=== PATIENT | female | born 1950 | race Caucasian/White ===

== ENCOUNTER 2020-07-24 09:03 | Day surgery (SDC) | payer OTHER ==
[~2020-07-24 09:03] MED LIST: CALCAVITDA PO; ESTR.05PBW TOP; Homocysteine F1 EACH PO; PROGEST; STRONTIUM CITRATE; Super B Comple150 MG PO; T3/T4; TESTOST; VITAMIN D35000 UNI1 PO; [UNRECOGNIZED DRUG - OTHER] PO
== END 2020-07-24 22:54 | disposition home or self-care (01) ==
LOC: MOI US 09:03 → MOI MAM 09:30 → MOI US 22:54
DX: R92.8 Other abnormal and inconclusive findings on diagnostic imaging of breast (principal); C50.911 Malignant neoplasm of unspecified site of right female breast; Z17.0 Estrogen receptor positive status [ER+]
CPT/HCPCS: 19083; 77065; 88305; 88360; A4648; G0279

== ENCOUNTER → 2020-12-20 | Outpatient (CLI) | payer OTHER | END | disposition home or self-care (01) | LOC: LAB SHORT 12:19 | DX: D22.72 Melanocytic nevi of left lower limb, including hip (principal) | CPT/HCPCS: 88305 ==

== ENCOUNTER 2021-02-05 10:43 | Day surgery (SDC) | payer OTHER ==
[~2021-02-05] VITALS: Ht 157.5 cm; Wt 54.5 kg
[~2021-02-05 10:43] MED LIST changes: +ALPR.25 PO; +ASPI325 PO; +ATOR20 PO; +Calcium Carbon500 MG PO; +ESTRADIOL (TWI1 EAC3 TD; +MOBIC15 MG PO; +OMEPRAZOLE MAGN20 MG PO; +VENL37.5ER; +ZOLP5 PO
[2021-02-05] MEDS ORDERED: ST. JOSEPH ASPI81 M1 (10:53)
== END 2021-02-05 12:13 | disposition home or self-care (01) ==
LOC: ORSCSDS 10:43
PROVIDERS: Student in an Organized Health Care Education/Training Program
PROC: 0DB98ZX Excision of Duodenum, Via Natural or Artificial Opening Endoscopic, Diagnostic (ICD-10-PCS; principal; 2021-02-05 12:00)
PROC: 0DB58ZX Excision of Esophagus, Via Natural or Artificial Opening Endoscopic, Diagnostic (ICD-10-PCS; principal; 2021-02-05 12:00)
PROC: 0DB78ZX Excision of Stomach, Pylorus, Via Natural or Artificial Opening Endoscopic, Diagnostic (ICD-10-PCS; principal; 2021-02-05 12:00)
DX: R10.13 Epigastric pain (principal); K29.80 Duodenitis without bleeding; K20.90 Esophagitis, unspecified without bleeding; R23.4 Changes in skin texture; E03.9 Hypothyroidism, unspecified; Z79.899 Other long term (current) drug therapy; Z79.82 Long term (current) use of aspirin
CPT/HCPCS: 88305; 88312; 88342; J2704; J7120

== ENCOUNTER 2021-03-25 19:46 | Emergency (ER) | payer OTHER ==
[~2021-03-25] VITALS: Ht 157.5 cm; Wt 54.4 kg
[~2021-03-25 19:46] MED LIST changes: +ST. JOSEPH ASPI81 M1
[2021-03-25 21:15] LABS: BASOPHILS ABSOLUTE AUTO 0.06 K/mm3 (0.00-0.23); BASOPHILS PERCENT AUTO 1 % (0-2); EOSINOPHILS ABSOLUTE AUTO 0.25 K/mm3 (0.00-0.68); EOSINOPHILS PERCENT AUTO 3 % (0-6); Hematocrit 31.8 % (33.0-51.0); Hemoglobin 10.9 g/dL (11.5-16.0); IMMATURE GRAN ABSOLUTE AUTO 0.02 K/mm3 (0.00-0.10); IMMATURE GRAN PERCENT AUTO 0 % (0-1); LYMPHOCYTES ABSOLUTE AUTO 1.86 K/mm3 (0.84-5.20); LYMPHOCYTES PERCENT AUTO 21 % (21-46); MONOCYTES ABSOLUTE AUTO 0.86 K/mm3 (0.16-1.47); MONOCYTES PERCENT AUTO 10 % (4-13); Mean Corpuscular HGB 33.3 pg (26.0-34.0); Mean Corpuscular HGB Conc 34.3 g/dL (31.5-36.5); Mean Corpuscular Volume 97 fL (80-100); Mean Platelet Volume 8.6 fL (9.1-12.4); NEUTROPHILS ABSOLUTE AUTO 5.78 K/mm3 (1.96-9.15); NEUTROPHILS PERCENT AUTO 66 % (41-73); Platelet Count 312 K/mm3 (150-400); RDW Coefficient Variation 11.9 % (11.7-14.2); RDW Standard Deviation 42.4 fL (35.1-46.3); Red Blood Cell Count 3.27 M/mm3 (3.80-5.20); White Blood Cell Count 8.83 K/mm3 (4.00-11.30)
[2021-03-25 21:36] LABS: Alanine Aminotransfer (ALT/SGP 25 U/L (12-78); Albumin, Blood 3.1 g/dL (3.4-5.0); Albumin/Globulin Ratio 0.9 (0.8-1.8); Alk Phos 82 U/L (50-136); Anion Gap 7 mmol/L (6-16); Aspartate Aminotrans (AST/SGOT 21 U/L (12-37); Bilirubin, Total 0.1 mg/dL (0.1-1.0); Blood Urea Nitrogen 25 mg/dL (8-24); Bun/Creatinine Ratio 32.4 (12.0-20.0); CO2, Blood 25 mmol/L (21-32); Calcium, Blood 8.5 mg/dL (8.5-10.1); Chloride, Blood 112 mmol/L (98-108); Creatinine, Blood 0.77 mg/dL (0.40-1.00); Globulin, Blood 3.6 g/dL (2.2-4.0); Glomerular Filtration Rate >60 (60-); Glucose, Blood 114 mg/dL (70-99); Magnesium, Blood 2.2 mg/dL (1.6-2.4); Potassium, Blood 3.7 mmol/L (3.5-5.5); Sodium, Blood 144 mmol/L (136-145); Total Protein, Blood 6.7 g/dL (6.4-8.2); Troponin I <0.015 ng/mL (0.000-0.040)
== END 2021-03-26 00:18 | disposition home or self-care (01) ==
LOC: ER 19:46
PROVIDERS: Emergency Medicine
DX: H53.8 Other visual disturbances (principal); I77.3 Arterial fibromuscular dysplasia; Z20.822 Contact with and (suspected) exposure to COVID-19; E78.5 Hyperlipidemia, unspecified; Z88.5 Allergy status to narcotic agent; Z79.899 Other long term (current) drug therapy; Z79.82 Long term (current) use of aspirin
CPT/HCPCS: 0241U; 70496; 70498; 80053; 83735; 84484; 85025; 93005; 93010; 99284-25; Q9967

== ENCOUNTER 2021-05-25 18:56 | Emergency (ER) | payer OTHER ==
[~2021-05-25] VITALS: Ht 157.5 cm; Wt 55.8 kg
[2021-05-25] MEDS ORDERED: ANASTROZOLE1 M7 PO (20:23)
== END 2021-05-25 21:40 | disposition home or self-care (01) ==
LOC: ER 18:56
DX: S52.502A Unspecified fracture of the lower end of left radius, initial encounter for closed fracture (principal); E78.5 Hyperlipidemia, unspecified; Z88.5 Allergy status to narcotic agent; Z79.82 Long term (current) use of aspirin; Z79.899 Other long term (current) drug therapy; W01.0XXA Fall on same level from slipping, tripping and stumbling without subsequent striking against object, initial encounter
CPT/HCPCS: 25605; 73100; 73110; 99283-25; A9270

== ENCOUNTER 2022-05-29 07:26 | Day surgery (SDC) | payer OTHER ==
[~2022-05-29] VITALS: Ht 157.5 cm; Wt 61.9 kg
[~2022-05-29 07:26] MED LIST changes: +ANASTROZOLE1 M7 PO
[2022-05-29] MEDS ORDERED: LETROZOLE2.5 M2 PO (08:12)
--- NOTE | 2022-05-29 08:49 | NUR ---
05/29/22 0849 Chica Salas NO MONITORING PER DR. TODD, NO IV OR MEDICATIONS GIVEN.
== END 2022-05-29 08:50 | disposition home or self-care (01) ==
LOC: ORSCSDS 07:26
PROVIDERS: Anesthesiology
PROC: 3E0R3BZ Introduction of Anesthetic Agent into Spinal Canal, Percutaneous Approach (ICD-10-PCS; principal; 2022-05-29 08:30)
PROC: 3E0R33Z Introduction of Anti-inflammatory into Spinal Canal, Percutaneous Approach (ICD-10-PCS; principal; 2022-05-29 08:30)
DX: M54.16 Radiculopathy, lumbar region (principal); E03.9 Hypothyroidism, unspecified; Z79.82 Long term (current) use of aspirin; Z79.899 Other long term (current) drug therapy
CPT/HCPCS: J1040

== ENCOUNTER → 2023-11-14 | Outpatient (CLI) | payer OTHER ==
[~2023-11-14] MED LIST changes: +LETROZOLE2.5 M2 PO
== END | disposition home or self-care (01) ==
LOC: LAB 08:36 → LAB SHORT 08:36
DX: N39.0 Urinary tract infection, site not specified (principal)
CPT/HCPCS: 87077; 87086; 87186

== ENCOUNTER 2023-12-16 22:08 | Emergency (ER) | payer OTHER ==
[~2023-12-16] VITALS: Ht 157.5 cm; Wt 53.1 kg
[2023-12-17] MEDS ORDERED: FentaNYL Citrate 50 MCG/ML 2 ML Injection IV PRN (01:10)
[2023-12-17] MEDS ORDERED: Ondansetron HCl 2 MG / ML 2ML Vial ONE (01:47)
[2023-12-17] MEDS ORDERED: Ondansetron HCl 2 MG / ML 2ML Vial IV ONE (01:50)
[2023-12-17] MEDS ORDERED: Ketorolac Tromethamine 30mg Vial IV ONE (02:40)
[2023-12-17 03:00] VITALS: BP 105/66
[2023-12-17] MEDS ORDERED: HYDR1TAB94 PO (03:05)
== END 2023-12-17 03:25 | disposition home or self-care (01) ==
LOC: ER 22:08
DX: S52.501A Unspecified fracture of the lower end of right radius, initial encounter for closed fracture (principal); S52.611A Displaced fracture of right ulna styloid process, initial encounter for closed fracture; E78.5 Hyperlipidemia, unspecified; W10.9XXA Fall (on) (from) unspecified stairs and steps, initial encounter; Z79.82 Long term (current) use of aspirin; Z79.899 Other long term (current) drug therapy; Z88.5 Allergy status to narcotic agent
CPT/HCPCS: 25605; 73100; 73110; 96374-59; 96375-59; 96376-59; 99283-25; J1885; J2405; J3010

== ENCOUNTER 2023-12-23 12:26 | Day surgery (SDC) | payer OTHER ==
[2023-12-23] VITALS (7 sets, daily range): BP systolic 125–161; BP diastolic 70–85
[~2023-12-23] VITALS: Ht 157.5 cm; Wt 53.3 kg
[~2023-12-23 12:26] MED LIST changes: +HYDR1TAB94 PO
[2023-12-23] MEDS ORDERED: LEVOTHYROXINE25 MC9 PO (13:29)
[2023-12-23] MEDS ORDERED: Lactated Ringer's 1,000 ML IV SCH (13:35)
[2023-12-23] MEDS ORDERED: CeFAZolin Sodium 2,000 MG in NS 100 ML IV SCH (13:35)
[2023-12-23] MEDS ORDERED: Midazolam HCl 1MG / ML 2ML Vial ONE (15:20)
[2023-12-23] MEDS ORDERED: FentaNYL Citrate 50 MCG/ML 2 ML Injection ONE (15:20)
[2023-12-23] MEDS ORDERED: propofoL 50 ML IV ONE (15:22)
--- NOTE | 2023-12-23 15:45 | NUR ---
1515: Dr. Lazaro at bedside to perform axillary brachial plexus nerve block. 1528: Timeout complete by RN. 1532: Premeds given by Dr. Lazaro at bedside. See anesthesia records. Pt on continuous monitors for HR and pulse ox, pt placed on 2L supplemental O2 via NC. 1533: Block time start. 1541: Block time end. VSS throughout procedure. Pt tolerated procedure well.
[2023-12-23] MEDS ORDERED: propofoL 20 ML IV ONE (15:53)
[2023-12-23] MEDS ORDERED: Phenylephrine HCl 100 MCG/ML-NS 10MLSYR (1MG/10ML) ONE (16:09)
--- NOTE | 2023-12-23 16:22 | NUR ---
PT BELONGINGS PLACED UNDERNEATH GURNEY FOR SAFEKEEPING. PT GLASSES TAKEN TO PACU FOR SAFEKEEPING.
[2023-12-23] MEDS ORDERED: ePHEDrine Sulfate 50 MG/ML 1ML Injection ONE (16:26)
[2023-12-23] MEDS ORDERED: Glycopyrrolate 0.2 MG/ML 5ML VIAL ONE (16:26)
--- NOTE | 2023-12-23 17:55 | NUR ---
Patient up to Ambulate independently. Gait steady. Patient States Post-Procedure ride home has been arranged. Discharged via wheelchair to private car for ride home. OUT VIA WC, TOLERATING PO FLUIDS/NUTRITION, SCRIPTS SENT TO PHARMACY AND SPOUSE HAS PICKED UP PER PT. CHAYA. DC INSTRUCTIONS AND VERBALIZES UNDERSTANDING
== END 2023-12-23 23:00 | disposition home or self-care (01) ==
LOC: ORSCMMR 12:26 → ORD 14:15 → ORSCMMR 14:15
PROVIDERS: Orthopaedic Surgery
PROC: 0PH Upper Bones, Insertion (ICD-10-PCS; principal; 2023-12-23 15:00)
DX: S52.531A Colles' fracture of right radius, initial encounter for closed fracture (principal); W10.9XXA Fall (on) (from) unspecified stairs and steps, initial encounter; E03.9 Hypothyroidism, unspecified; F41.9 Anxiety disorder, unspecified; Z86.73 Personal history of transient ischemic attack (TIA), and cerebral infarction without residual deficits; Z79.899 Other long term (current) drug therapy
CPT/HCPCS: C1713; J0690; J2250; J2371; J2704; J3010; J7120

== ENCOUNTER 2024-04-09 11:54 | Day surgery (SDC) | payer OTHER ==
[~2024-04-09] VITALS: Ht 157.5 cm; Wt 58.8 kg
[~2024-04-09 11:54] MED LIST changes: +Bupivacaine 0.5% W/EPI 1:200000 SDV 30 ML Vial ONE; +LEVOTHYROXINE25 MC9 PO
[2024-04-09] MEDS ORDERED: CeFAZolin Sodium 2,000 MG VIAL ONE (12:05)
[2024-04-09] MEDS ORDERED: Lactated Ringer's 1,000 ML IV ONE ×2 (12:40→13:50)
--- NOTE | 2024-04-09 12:46 | NUR ---
[facility]24 [facility] RN NOTED IRREGULAR HEARTBEAT, SO RHYTHM STRIP WAS COMPLETED. 12 LEAD EKG WAS COMPLETED YESTERDAY. 12 LEAD EKG SHOWS NORMAL SINUS RHYTHM. RHYTHM STRIP TODAY SHOWN TO DR JARRETT, PER DR JARRETT OK TO PROCEED AND NO NEW ORDERS.
[2024-04-09] MEDS ORDERED: PRAMIPEXOLE D0.25 M1 PO (12:53)
[2024-04-09] MEDS ORDERED: [UNRECOGNIZED DRUG - OTHER] (12:56)
[2024-04-09] MEDS ORDERED: propofoL 20 ML IV ONE (13:19)
[2024-04-09] MEDS ORDERED: FentaNYL Citrate 50 MCG/ML 2 ML Injection ONE (13:19)
[2024-04-09] MEDS ORDERED: Ondansetron HCl 2 MG / ML 2ML Vial ONE (14:11)
[2024-04-09] MEDS ORDERED: Dexamethasone Sod Phos 10 MG/ML 1ML VIAL ONE (14:11)
[2024-04-09 14:46] VITALS: BP 127/66
== END 2024-04-09 15:34 | disposition home or self-care (01) ==
LOC: ORSCSDS 11:54
PROVIDERS: Podiatrist Foot & Ankle Surgery
PROC: 0QSN04Z Reposition Right Metatarsal with Internal Fixation Device, Open Approach (ICD-10-PCS; principal; 2024-04-09 13:15)
DX: S92.354A Nondisplaced fracture of fifth metatarsal bone, right foot, initial encounter for closed fracture (principal); W10.9XXA Fall (on) (from) unspecified stairs and steps, initial encounter; I10 Essential (primary) hypertension; K21.9 Gastro-esophageal reflux disease without esophagitis; Z79.899 Other long term (current) drug therapy; Z79.82 Long term (current) use of aspirin
CPT/HCPCS: C1713; J0690; J1100; J2405; J2704; J3010; J7120